=== PATIENT | male | born 1935 | race Caucasian/White ===

== ENCOUNTER 2019-11-13 02:54 | Emergency (ER) | payer OTHER ==
[~2019-11-13] VITALS: Ht 170.2 cm; Wt 77.0 kg
[~2019-11-13 02:54] MED LIST: ASPI-1393 PO; NAPROXEN
[2019-11-13] MEDS ORDERED: ACETAMINOPHEN 500MG TABLET PO ONE (03:45)
[2019-11-13] MEDS ORDERED: ASPIRIN 81MG TABLET PO ONE (03:45)
[2019-11-13 03:54] LABS: BASOPHILS % 0.7 % (0.0-2.0); EOSINOPHILS % 6.9 % (0.0-5.0); HEMATOCRIT. 41.1 % (42.0-52.0); HEMOGLOBIN. 13.7 g/dL (14.0-18.0); LYMPHOCYTES % 25.8 % (20.0-50.0); MEAN CORPUSCULAR HEMOGLOBIN 30.1 pg (28.0-32.0); MEAN CORPUSCULAR VOLUME 90.5 fL (80.0-94.0); MEAN PLATELET VOLUME 9.4 fl (7.4-10.4); MONOCYTES % 9.3 % (2.0-8.0); NEUTROPHILS % 57.3 % (40.0-76.0); PLATELET 145 x1000/uL (130-400); RED BLOOD CELL COUNT 4.54 mill/uL (4.7-6.1); RED CELL DISTRIBUTION WIDTH 13.5 % (11.6-14.6)
[2019-11-13 03:57] LABS: CHLORIDE 110 mEq/L (98-107)
[2019-11-13 03:58] LABS: PARTIAL THROMBOPLASTIN TIME 30.2 sec (23.4-31.0); PROTHROMBIN TIME 10.4 sec (9.6-11.0)
[2019-11-13 06:00] VITALS: BP 120/69
== END 2019-11-13 06:11 | disposition short-term general hospital (02) ==
LOC: ER 02:54 → CANBEDREQ 07:37
DX: R07.9 Chest pain, unspecified (principal); I10 Essential (primary) hypertension; Z79.82 Long term (current) use of aspirin; Z79.899 Other long term (current) drug therapy
CPT/HCPCS: 36415; 71045; 83880; 84484; 93005; 99285